=== PATIENT | male | born 1950 | race Asian ===

== ENCOUNTER 2016-09-09 06:55 | Inpatient (IN) | payer OTHER ==
[~2016-09-09] VITALS: Ht 172.7 cm; Wt 98.8 kg
[~2016-09-09 06:55] MED LIST: ATOR80TA75 PO; ATORVASTATIN; DEXL30CA2 PO; DEXL60CA PO; DIFL5DRO EACHEYE; DIGO250T PO; DIGOXIN; ENTE0.5T PO; FLUC100T PO; FLUC100T4; GLIP10TA13 PO; GLIPIZIDE; INSU100V8 SQ; LACT10SO5 PO; LANTUS; LINA5TAB PO; LOSA1TAB16 PO; LOSA25TA5 PO; LOSARTAN; METF10002 PO; METFORMIN; METO50TA82 PO; METOPROLOL; NOVOLOG; RIFA550T PO; TRAZ100T15 PO; VITAMIN B12 PO; [UNRECOGNIZED DRUG - OTHER]; [UNRECOGNIZED DRUG - OTHER]
[2016-09-09] MEDS ORDERED: LORazepam 2 MG/ML, 1ML ONE (07:27)
[2016-09-09] MEDS ORDERED: LORazepam 2 MG/ML, 1ML IVPush ONE (07:30)
[2016-09-09 07:44] LABS: ASPARTATE AMINO TRANSFERASE 66 U/L (15-37); BLOOD UREA NITROGEN 14 mg/dL (7-18)
[2016-09-09 07:49] LABS: IS PT STATUS REG ER OR PRE ER? YES
[2016-09-09] MEDS ORDERED: LACTULOSE 20 GM/30 ML UDC PO ONE (08:00)
[2016-09-09] MEDS ORDERED: SODIUM CHLORIDE FLUSH 10ML SYR IVF PRN (10:00)
[2016-09-09] MEDS ORDERED: SODIUM CHLORIDE FLUSH 10ML SYR IVF ONE (10:00)
[2016-09-09] MEDS ORDERED: PROMETHAZINE 25 MG/ML, 1ML IM PRN (10:30)
[2016-09-09] MEDS ORDERED: ONDANSETRON 2MG/ML, 2ML IVPush PRN (10:30)
[2016-09-09] MEDS: INSULIN ASPART 100 UNITS/ML, PEN SQ-INSULIN SCH ×3 (10:30→22:10)
[2016-09-09] MEDS ORDERED: DEXTROSE 50%, 50ML SYRINGE IVPush PRN (10:30)
[2016-09-09] MEDS ORDERED: GLUCAGON 1 MG IM PRN (10:30)
[2016-09-09] MEDS ORDERED: DEXTROSE 4 GM TAB.CHEW PO PRN (10:30)
[2016-09-09] MEDS: SODIUM CHLORIDE 0.9% 1,000 ML IV SCH ×2 (11:36→22:57)
[2016-09-09] MEDS: SODIUM CHLORIDE FLUSH 10ML SYR IVF SCH ×2 (11:37→22:07)
[2016-09-09 11:39] VITALS: BP 160/81
[2016-09-09 12:45] VITALS: BP 141/76
[2016-09-09] MEDS: RIFAXIMIN 550 MG TABLET PO SCH ×2 (12:46→22:03)
[2016-09-09] MEDS: METOPROLOL TARTRATE 50 MG TABLET PO SCH ×2 (12:46→22:03)
[2016-09-09] MEDS: LOSARTAN 25MG TABLET PO SCH (12:46)
[2016-09-09] MEDS: DIGOXIN 0.25 MG TABLET PO SCH (12:46)
[2016-09-09] MEDS: LACTULOSE 10 GM/15 ML UDC PO SCH ×3 (12:46→22:36)
[2016-09-09 19:45] VITALS: BP 137/80
[2016-09-10 01:22] VITALS: BP 148/80
[2016-09-10] MEDS: INSULIN ASPART 100 UNITS/ML, PEN SQ-INSULIN SCH ×4 (04:25→20:30)
[2016-09-10 04:43] LABS: ASPARTATE AMINO TRANSFERASE 72 U/L (15-37); BLOOD UREA NITROGEN 14 mg/dL (7-18)
[2016-09-10] MEDS: LACTULOSE 10 GM/15 ML UDC PO SCH ×4 (05:08→20:30)
[2016-09-10] MEDS ORDERED: POTASSIUM CHLORIDE 20 MEQ in DEXTROSE 5% 1,000 ML IV SCH (07:00)
[2016-09-10 08:27] VITALS: BP 164/81
[2016-09-10] MEDS: LOSARTAN 25MG TABLET PO SCH (08:44)
[2016-09-10] MEDS: METOPROLOL TARTRATE 50 MG TABLET PO SCH ×2 (08:44→20:30)
[2016-09-10] MEDS: DIGOXIN 0.25 MG TABLET PO SCH (08:45)
[2016-09-10] MEDS: RIFAXIMIN 550 MG TABLET PO SCH ×2 (08:45→20:30)
[2016-09-10] MEDS: SODIUM CHLORIDE FLUSH 10ML SYR IVF SCH ×2 (08:45→20:30)
[2016-09-10] MEDS ORDERED: POTASSIUM CHLORIDE 20 MEQ TAB.ER.PRT PO ONE (10:00)
[2016-09-10 13:48] VITALS: BP 129/76
[2016-09-10 20:00] VITALS: BP 136/78
[2016-09-11 02:00] VITALS: BP 143/82
[2016-09-11] MEDS: INSULIN ASPART 100 UNITS/ML, PEN SQ-INSULIN SCH ×3 (04:30→11:58)
[2016-09-11] MEDS: LACTULOSE 10 GM/15 ML UDC PO SCH ×2 (05:32→11:59)
[2016-09-11 05:35] LABS: BLOOD UREA NITROGEN 15 mg/dL (7-18)
[2016-09-11 05:40] LABS: ASPARTATE AMINO TRANSFERASE 61 U/L (15-37)
[2016-09-11 06:58] VITALS: BP 116/77
[2016-09-11] MEDS: DIGOXIN 0.25 MG TABLET PO SCH (07:57)
[2016-09-11] MEDS: RIFAXIMIN 550 MG TABLET PO SCH (07:57)
[2016-09-11] MEDS: LOSARTAN 25MG TABLET PO SCH (07:58)
[2016-09-11] MEDS: SODIUM CHLORIDE FLUSH 10ML SYR IVF SCH (07:58)
[2016-09-11] MEDS: METOPROLOL TARTRATE 50 MG TABLET PO SCH (07:59)
== END 2016-09-11 12:30 | disposition home or self-care (01) | DRG 441 ==
LOC: ED 07:41 → EDIP 09:49 → 4EST 10:33 → DCLOUNGE 09-11 12:16
DX: K72.01 Acute and subacute hepatic failure with coma (principal); N17.0 Acute kidney failure with tubular necrosis; E43 Unspecified severe protein-calorie malnutrition; B18.1 Chronic viral hepatitis B without delta-agent; D68.4 Acquired coagulation factor deficiency; E72.20 Disorder of urea cycle metabolism, unspecified; I50.32 Chronic diastolic (congestive) heart failure; E78.5 Hyperlipidemia, unspecified; D69.59 Other secondary thrombocytopenia; E11.9 Type 2 diabetes mellitus without complications; E86.0 Dehydration; I11.0 Hypertensive heart disease with heart failure; I27.2 Other secondary pulmonary hypertension; E11.51 Type 2 diabetes mellitus with diabetic peripheral angiopathy without gangrene; K21.9 Gastro-esophageal reflux disease without esophagitis; E53.8 Deficiency of other specified B group vitamins; D50.9 Iron deficiency anemia, unspecified; E66.01 Morbid (severe) obesity due to excess calories; Z79.899 Other long term (current) drug therapy; Z87.442 Personal history of urinary calculi; Z91.14 Patient's other noncompliance with medication regimen; Z95.0 Presence of cardiac pacemaker; Y92.89 Other specified places as the place of occurrence of the external cause; Z68.33 Body mass index [BMI] 33.0-33.9, adult
CPT/HCPCS: 36415; 70450; 71010; 80053; 80162; 80307; 82140; 82962; 83605; 83735; 84100; 84484; 85025; 85610; 85730; 93005; 96374; J1815; J3480; J7070; J2060; J7030

== ENCOUNTER 2017-03-24 21:57 | Inpatient (IN) | payer OTHER ==
[~2017-03-24] VITALS: Ht 157.5 cm; Wt 100.2 kg
[~2017-03-24 21:57] MED LIST changes: +ATOR-2 PO; -ATOR80TA75 PO; -DEXL60CA PO; +DEXL60CA2 PO; +FLUC200T4 PO; -LOSA1TAB16 PO; +LOSA1TAB19 PO; -RIFA550T PO; +RIFA550T4 PO
[2017-03-24 22:33] LABS: HEMATOCRIT 34.8 % (39.2-51.8); HEMOGLOBIN 11.6 g/dL (13.7-18.0)
[2017-03-24 22:35] LABS: BLOOD UREA NITROGEN 27 mg/dL (7-18)
[2017-03-24 22:36] LABS: ASPARTATE AMINO TRANSFERASE 83 U/L (15-37)
[2017-03-24] MEDS ORDERED: DEXTROSE 50%, 50ML SYRINGE ONE (22:47)
[2017-03-25] MEDS ORDERED: DEXTROSE 5% 1,000 ML IV SCH
[2017-03-25] MEDS ORDERED: PIPERACILLIN/TAZO/PMX 3.375GM 50 ML IVPB ONE
[2017-03-25] MEDS ORDERED: DEXTROSE 50%, 50ML SYRINGE ONE (00:17)
[2017-03-25] MEDS ORDERED: PIPERACILLIN/TAZO/PMX 3.375GM 50 ML ONE (00:24)
[2017-03-25] MEDS ORDERED: DEXTROSE 10%, 1,000ML IVPB ONE (00:30)
[2017-03-25] MEDS ORDERED: DEXTROSE 50%, 50ML SYRINGE IVPush ONE ×2 (00:30)
[2017-03-25] MEDS ORDERED: DEXTROSE 50%, 50ML SYRINGE IVPush PRN (01:00)
[2017-03-25] MEDS ORDERED: ENALAPRILAT 1.25 MG/ML, 2ML IVPush PRN (01:00)
[2017-03-25] MEDS ORDERED: OXYcodone IR 5MG TABLET PO PRN (01:00)
[2017-03-25] MEDS ORDERED: ONDANSETRON ODT 4 MG PO PRN (01:00)
[2017-03-25] MEDS ORDERED: GLUCAGON 1 MG IM PRN (01:00)
[2017-03-25] MEDS ORDERED: hydrALAzine 20 MG/ML, 1ML IVPush PRN (01:00)
[2017-03-25] MEDS ORDERED: DEXTROSE 4 GM TAB.CHEW PO PRN (01:00)
[2017-03-25] MEDS ORDERED: ONDANSETRON 2MG/ML, 2ML IVPush PRN (01:00)
[2017-03-25] MEDS: DEXTROSE 5% 1,000 ML IV SCH ×2 (01:00→14:50)
[2017-03-25] MEDS ORDERED: SODIUM CHLORIDE 0.9% 1,000ML IVBOLUS ONE (02:30)
[2017-03-25] MEDS: HEPARIN 5,000 UNITS/ML, 1ML SQ SCH ×3 (03:59→17:39)
[2017-03-25 04:17] VITALS: BP 117/71
[2017-03-25 07:38] VITALS: BP 94/56
[2017-03-25] MEDS ORDERED: FLUCONAZOLE 200 MG TABLET PO SCH (09:00)
[2017-03-25] MEDS ORDERED: LOSARTAN 25MG TABLET PO SCH (09:00)
[2017-03-25] MEDS: CYANOCOBALOMIN 100MCG TABLET PO SCH (09:33)
[2017-03-25] MEDS: PANTOPROZOLE 40MG TABLET PO SCH (09:33)
[2017-03-25] MEDS: PIPERACILLIN/TAZO/PMX 3.375GM 50 ML IV SCH ×2 (09:33→17:39)
[2017-03-25] MEDS: RIFAXIMIN 550 MG TABLET PO SCH ×2 (09:34→21:39)
[2017-03-25] MEDS: ENTECAVIR HOMEMEDPO SCH (09:34)
[2017-03-25] MEDS: SODIUM CHLORIDE FLUSH 10ML SYR IVF SCH ×2 (09:36→21:41)
[2017-03-25] MEDS: LACTULOSE 10 GM/15 ML UDC PO SCH ×5 (09:42→21:00)
[2017-03-25] MEDS: DIGOXIN 0.25 MG TABLET PO SCH (09:53)
[2017-03-25 13:52] VITALS: BP 118/70
[2017-03-25 14:56] LABS: BLOOD UREA NITROGEN 25 mg/dL (7-18)
[2017-03-25 20:00] VITALS: BP 102/64
[2017-03-25] MEDS: ATORVASTATIN 80 MG TABLET PO SCH (21:39)
[2017-03-25] MEDS: D5%-0.45NACL+KCL 20MEQ 1,000 ML IV SCH (21:39)
[2017-03-26] MEDS: HEPARIN 5,000 UNITS/ML, 1ML SQ SCH ×3 (00:09→16:35)
[2017-03-26] MEDS: PIPERACILLIN/TAZO/PMX 3.375GM 50 ML IV SCH ×2 (00:09→08:13)
[2017-03-26 02:00] VITALS: BP 106/66
[2017-03-26 04:49] LABS: HEMATOCRIT 28.8 % (39.2-51.8); HEMOGLOBIN 9.8 g/dL (13.7-18.0); WHITE BLOOD COUNT 6.5 x10^3/uL (3.4-10)
[2017-03-26 04:57] LABS: BLOOD UREA NITROGEN 22 mg/dL (7-18)
[2017-03-26 05:01] LABS: ASPARTATE AMINO TRANSFERASE 86 U/L (15-37)
[2017-03-26] MEDS: D5%-0.45NACL+KCL 20MEQ 1,000 ML IV SCH (05:12)
[2017-03-26] MEDS: LACTULOSE 10 GM/15 ML UDC PO SCH ×4 (05:12→20:56)
[2017-03-26] MEDS: ENTECAVIR HOMEMEDPO SCH (07:32)
[2017-03-26 07:38] VITALS: BP 102/66
[2017-03-26] MEDS ORDERED: DIGOXIN 0.125 MG TABLET ONE (08:16)
[2017-03-26] MEDS: PANTOPROZOLE 40MG TABLET PO SCH (09:00)
[2017-03-26] MEDS: DIGOXIN 0.25 MG TABLET PO SCH (09:00)
[2017-03-26] MEDS: CYANOCOBALOMIN 100MCG TABLET PO SCH (09:00)
[2017-03-26] MEDS: SODIUM CHLORIDE FLUSH 10ML SYR IVF SCH ×2 (09:00→20:56)
[2017-03-26] MEDS: RIFAXIMIN 550 MG TABLET PO SCH ×2 (09:00→20:56)
[2017-03-26 12:55] VITALS: BP 109/68
[2017-03-26] MEDS ORDERED: D5%-0.45NACL+KCL 20MEQ 1,000 ML IV SCH ×2 (19:30)
[2017-03-26 20:00] VITALS: BP 119/72
[2017-03-26] MEDS: ATORVASTATIN 80 MG TABLET PO SCH (20:56)
[2017-03-27] MEDS: HEPARIN 5,000 UNITS/ML, 1ML SQ SCH ×2 (00:28→08:27)
[2017-03-27 02:00] VITALS: BP 127/74
[2017-03-27 05:55] LABS: HEMATOCRIT 29.7 % (39.2-51.8); HEMOGLOBIN 10.1 g/dL (13.7-18.0); WHITE BLOOD COUNT 5.9 x10^3/uL (3.4-10)
[2017-03-27 06:00] LABS: BLOOD UREA NITROGEN 20 mg/dL (7-18)
[2017-03-27] MEDS: LACTULOSE 10 GM/15 ML UDC PO SCH ×2 (06:12→11:00)
[2017-03-27 06:58] VITALS: BP 125/74
[2017-03-27] MEDS: ENTECAVIR HOMEMEDPO SCH (08:25)
[2017-03-27] MEDS: PANTOPROZOLE 40MG TABLET PO SCH (08:26)
[2017-03-27] MEDS: DIGOXIN 0.25 MG TABLET PO SCH (08:26)
[2017-03-27] MEDS: SODIUM CHLORIDE FLUSH 10ML SYR IVF SCH (08:26)
[2017-03-27] MEDS: CYANOCOBALOMIN 100MCG TABLET PO SCH (08:26)
[2017-03-27] MEDS: RIFAXIMIN 550 MG TABLET PO SCH (08:27)
== END 2017-03-27 12:49 | disposition home or self-care (01) | DRG 637 ==
LOC: ED 22:53 → EDIP 23:53 → 4WST 03-25 03:19
PROVIDERS: ADMIT Family Medicine; ATTEND Family Medicine
PROC: 0T9B70Z Drainage of Bladder with Drainage Device, Via Natural or Artificial Opening (ICD-10-PCS; principal; 2017-03-24)
DX: E11.649 Type 2 diabetes mellitus with hypoglycemia without coma (principal); J69.0 Pneumonitis due to inhalation of food and vomit; G93.41 Metabolic encephalopathy; N17.9 Acute kidney failure, unspecified; I95.9 Hypotension, unspecified; K76.6 Portal hypertension; I13.0 Hypertensive heart and chronic kidney disease with heart failure and stage 1 through stage 4 chronic kidney disease, or unspecified chronic kidney disease; N39.0 Urinary tract infection, site not specified; B18.1 Chronic viral hepatitis B without delta-agent; E11.22 Type 2 diabetes mellitus with diabetic chronic kidney disease; I50.9 Heart failure, unspecified; K72.90 Hepatic failure, unspecified without coma; D64.9 Anemia, unspecified; K74.60 Unspecified cirrhosis of liver; R74.0 Nonspecific elevation of levels of transaminase and lactic acid dehydrogenase [LDH]; K21.9 Gastro-esophageal reflux disease without esophagitis; N18.9 Chronic kidney disease, unspecified; Z66 Do not resuscitate; Z86.61 Personal history of infections of the central nervous system
CPT/HCPCS: 36415; 71010; 80048; 80053; 81001; 82962; 83036; 83605; 85025; 87040; 87086; 87106; 87324; 93005; 96361; 96374; 96376; J1644; J2543; J7070; J3480; J7030